=== PATIENT | male | born 1955 ===

== ENCOUNTER 2024-09-11 06:16 | Day surgery (SDC) | payer MEDICARE, SELFPAY | END 2024-09-11 08:59 | disposition home or self-care (01) | LOC: GI 06:16 | PROVIDERS: ATTENDING PHYSICIAN Internal Medicine Gastroenterology | DX: Z12.11 Encounter for screening for malignant neoplasm of colon (principal); K57.30 Diverticulosis of large intestine without perforation or abscess without bleeding; K64.8 Other hemorrhoids; Z80.0 Family history of malignant neoplasm of digestive organs | CPT/HCPCS: G0105 ==

== ENCOUNTER → 2024-12-15 07:11 | Outpatient (REF) | payer MEDICARE, SELFPAY | LOC: MRI 3T 07:11 | PROVIDERS: ATTENDING PHYSICIAN Specialist | DX: R97.20 Elevated prostate specific antigen [PSA] (principal) | CPT/HCPCS: 72197; A9575 ==